=== PATIENT | female | born 1995 | race Caucasian/White ===

== ENCOUNTER 2022-04-30 12:23 | Inpatient (IN) | payer BC ==
[~2022-04-30] VITALS: Ht 170.2 cm; Wt 97.3 kg
[2022-05-04] VITALS (25 sets, daily range): BP systolic 116–141; BP diastolic 59–90; PULSE 87–106; TEMP 98.2–99.4
--- NOTE | 2022-05-04 06:30 | NUR ---
0630: THE PATIENT AMBULATES TO ROOM WITH SPOUSE AT SIDE. DENIES ANY LEAKING FLUIDS, IS HAVING SOME CONTRACTIONS THAT SHE HAS NOT BEEN TIMING AND HAS FELT MOVEMENT. HOOKED UP TO TOCO AND EFM. INITIAL VITALS WNL. 0700: IV STARTED IN LEFT HAND, LABS DRAWN. LR BOLUS STARTED. 0720: SVE BY DAVID BAZZI. VERTEX CONFIRMED, /-1 0720: PITOCIN INFUSING PER PROTOCOL.
[2022-05-04] MEDS ORDERED: PRENATAL TABLET PO (07:00)
[2022-05-04 08:08] LABS: BASO % 0.3 % (0.0-2.0); EOS # 0.2 K/mm3 (0.0-0.7); EOS % 1.2 % (0.0-4.0); GRAN # 10.3 K/mm3 (1.4-6.5); GRAN % 79.7 % (42.2-75.2); HEMATOCRIT 37.6 % (37.0-47.0); HEMOGLOBIN 13.1 g/dl (12.5-16.0); LYMPH # 1.2 K/mm3 (1.2-3.4); LYMPH % 9.5 % (20.0-51.0); MEAN CELL VOLUME 88 fl (80.0-100.0); MEAN CORPUSCULAR HEMOGLOBIN 31 pg (27-31); MEAN CORPUSCULAR HGB CONC 35 g/dl (33.0-37.0); MEAN PLATELET VOLUME 11.8 fl (7.4-10.4); MONO # 1.1 K/mm3 (0.1-0.6); MONO % 8.4 % (1.7-9.3); PLATELET COUNT 152 K/mm3 (130-400); RED BLOOD COUNT 4.27 M/mm3 (4.10-5.30)
--- NOTE | 2022-05-04 08:30 | NUR ---
0830: DR. EVANGELISTA AT BEDSIDE SVE: /-2 AROM AT THIS TIME, FLUID CLEAR WITHOUT ODOR.
--- NOTE | 2022-05-04 10:16 | NUR ---
PT TO SITTING POSITION FOR EPIDURAL PLACEMENT. LR BOLUS INFUSING. DIFFICULTY TRACING EFM AND TOCO D/T MATERNAL POSITIONING. MATERNAL VSS. 1016: TEST DOSE PER JANIE OSHEA CRNA.
--- NOTE | 2022-05-04 11:25 | NUR ---
1125: PT C/O INCREASED PRESSURE AND URGE TO PUSH. SVE COMPLETE/+1. NOTIFIED, SEE PHYS NOTIFICATION. FUNES REMOVED. ROOM PREPARED FOR DELIVERY AND ALL STAFF NOTIFIED. 1135: OF VIABLE FEMALE PER . INFANT PLACED ON MATERNAL ABDOMEN, CORD CLAMPED X2 AND CUT BY FOB. CARE OF INFANT ASSUMED BY DAVID KNAPP. MATERNAL VITAL SIGNS STABLE. LOCHIA WNL. 1138: OF PLACENTA AT THIS TIME PER . LR BOLUS INFUSING, PITOCIN BOLUS INFUSING WELL PER PROTOCOL. PERINEUM REMAINS INTACT. FUNDUS FIRM AT UMBILICUS. LOCHIA WNL. QBL:50CC FOLLOWING DELIVERY.
--- NOTE | 2022-05-04 13:15 | NUR ---
REPORT GIVEN TO DAVID CABALLERO. TRANSFER OF CARE AT THIS TIME.
--- NOTE | 2022-05-04 15:30 | NUR ---
1345 THIS RN TO ROOM TO OBTAIN VS. PT ASKED HOW HER LEGS ARE FEELING AND IF SHE COULD LIFT THEM OFF OF THE BED, PT STATES THEY STILL FEEL VERY HEAVY SHE LIFTED THEM OFF BED FOR 1-2 SECONDS. PT STATES SHE WOULD LIKE TO TRY AGAIN IN 30 MIN. 1415 THIS RN TO ROOM TO ATTEMPT TO GET PT UP TO RESTROOM. PT STILL DENIES BEING ABLE TO LIFT LEGS FOR LONGER THAN 2-3 SECONDS. 1445 THIS RN TO ROOM TO OBTAIN LAST SET OF RECOVERY VITALS. PT UP TO SIDE OF BED AT THIS TIME, STATES SHE DOES NOT NEED TO USE THE RESTROOM YET. WILL FOLLOW UP IN 30 MIN.
--- NOTE | 2022-05-04 15:55 | NUR ---
1530 THIS RN TO ROOM, PT STATES SHE IS READY TO AMBULATE TO BATHROOM. PT HAS STEADY GAIT AND REPORTS NO DIFFICULTY AT THIS TIME W THIS RN STANDBY ASSIST. PT VOIDED WITHOUT DIFFICULTY, UNMEASURED. PERICARE PROVIDED, NEW PAD PLACED WITH CLEAN MESH PANTIES. EPIDURAL CATHETER REMOVED AT THIS TIME, PT HANDLED WELL. BANDAID PLACED. PT, BABY AND TO ROOM 215, ORIENTED TO BOARD AND EDUCATIONAL FOLDER. PARENTS STATE UNDERSTANDING, NO QUESTIONS OR CONCERNS AT THIS TIME REGARDING THIS. THIS RN EDUCATES ON PT NEEDING 2 MORE MEASURED VOIDS PRIOR TO GETTING IV REMOVED, AND THAT SHE MAY AMBULATE ON HER OWN IF SHE FEELS COMFORTABLE DOING SO, TO JUST CALLOUT WHEN DONE SO WE CAN MEASURE URINE. PT EXPRESSES UNDERSTANDING. QUESTIONS INVITED, NONE AT THIS TIME. 1545 RETURN TO ROOM TO ADMIN MOTRIN AND OBTAIN BABY'S 4 HOUR ASSESSMENT/VITALS.
[2022-05-05 01:55] VITALS: BP 121/75; PULSE 84; TEMP 98.1
[2022-05-05 07:20] VITALS: BP 127/84; PULSE 82; TEMP 98
[2022-05-05] MEDS ORDERED: MOTRIN 800800 MG/TAB PO (07:44)
--- NOTE | 2022-05-05 09:11 | NUR ---
Initial visit; Parents thanked [employer] for offering congratulations and God's blessings for the of their daughter.
--- NOTE | 2022-05-05 13:10 | NUR ---
1230 THIS CORPORATE TAX MANAGER ASSUMES CARE OF PATIENT FROM BELKYS MCGEE LPN.
== END 2022-05-05 13:56 | disposition home or self-care (01) | DRG 807 ==
LOC: LDR 05-04 06:33 → OB 05-04 06:33
PROVIDERS: ADMIT Obstetrics & Gynecology
PROC: 10E0XZZ Delivery of Products of Conception, External Approach (ICD-10-PCS; principal; 2022-05-04)
PROC: 10907ZC Drainage of Amniotic Fluid, Therapeutic from Products of Conception, Via Natural or Artificial Opening (ICD-10-PCS; 2022-05-04)
PROC: 3E033VJ Introduction of Other Hormone into Peripheral Vein, Percutaneous Approach (ICD-10-PCS; 2022-05-04)
DX: O48.0 Post-term pregnancy (principal); Z37.0 Single live birth; Z3A.40 40 weeks gestation of pregnancy
CPT/HCPCS: J2590; J2791; J7120